=== PATIENT | female | born 1995 | race Two or more races ===

== ENCOUNTER 2020-01-30 04:28 | Emergency (ER) | payer MEDICAID ==
[~2020-01-30] VITALS: Ht 152.4 cm; Wt 49.9 kg
--- NOTE | 2020-01-30 04:45 | NUR ---
BIBSELF C/O LOWER ABDOMINAL PAIN, DESCRIBED CRAMPING. PT STATES SHE IS 3 WEEKS , P:2. DENIES VAGINAL BLEEDING, DYSURIA, NAUSEA, VOMITTING. PT AAOX4. RESPIRATIONS EVEN AND UNLABORED. SKIN INTACT. AMBULATORY WITH STEADY GAIT. NO ACUTE DISTRESS NOTED AT THIS TIME. WILL CONTINUE TO MONITOR.
--- NOTE | 2020-01-30 04:50 | NUR ---
[employer] AT BEDSIDE FOR BLOOD DRAW
[2020-01-30 04:53] LABS: BASOPHILS % (AUTO) 0.4 % (0.0-2.0); EOSINOPHILS % (AUTO) 2.8 % (0.0-6.0); HEMATOCRIT 42 % (33-45); HEMOGLOBIN 13.9 g/dL (11.5-14.8); LYMPHOCYTES # (AUTO) 1.4 /CMM (0.8-4.8); LYMPHOCYTES % (AUTO) 22.1 % (20.0-44.0); MEAN CORPUSCULAR HGB CONC 33 g/dl (31.0-36.0); MEAN CORPUSCULAR VOLUME 94 fL (82-100); MONOCYTES # (AUTO) 0.6 /CMM (0.1-1.30); MONOCYTES % (AUTO) 8.9 % (2.0-12.0); NEUTROPHILS # (AUTO) 4.2 /CMM (1.8-8.9); NEUTROPHILS % (AUTO) 65.8 % (43.0-81.0); PLATELET COUNT (AUTO) 211 /CMM (150-450); RED BLOOD CELL COUNT(AUTO) 4.48 MIL/uL (4.0-5.2); WHITE BLOOD COUNT (AUTO) 6.4 K/uL (4.3-11.0)
[2020-01-30 05:05] LABS: CALCIUM, SERUM 8.6 mg/dL (8.5-10.1); CREATININE 0.8 mg/dL (0.6-1.3); POTASSIUM 3.9 mmol/L (3.5-5.1)
--- NOTE | 2020-01-30 05:13 | NUR ---
URINE COLLECTED AND SENT TO LAB
[2020-01-30 05:14] LABS: ALBUMIN 4.2 g/dL (3.4-5.0); BILIRUBIN,DIRECT 0.1 mg/dL (0.0-0.2); BILIRUBIN,TOTAL 0.2 mg/dL (0.2-1.0); TOTAL PROTEIN, SERUM 7.3 g/dL (6.4-8.2)
[2020-01-30 05:20] LABS: APPEARANCE,URINE Slightly Cloudy (CLEAR); BILIRUBIN,URINE Negative (NEGATIVE); BLOOD, URINE Negative Ery/uL (NEGATIVE); COLOR,URINE Yellow (YELLOW); KETONES,URINE Negative (NEGATIVE); LEUKOCYTE ESTERASE ,URINE Negative (NEGATIVE); NITRITE, URINE Negative (NEGATIVE); PH,URINE 6.5 (5.0-8.0); PROTEIN,URINE Negative (NEGATIVE); UGLUCOSE Negative (NEGATIVE); UROBILINOGEN,URINE 0.2 EU/dL (0.2)
--- NOTE | 2020-01-30 06:03 | NUR ---
ULTRASOUND AT BEDSIDE
[2020-01-30 06:33] VITALS: BP 117/84
--- NOTE | 2020-01-30 06:33 | NUR ---
Patient discharged to home in stable condition. Written and verbal after care instructions given. Patient verbalizes understanding of instruction.Pt ambulatory with a steady gait
== END 2020-01-30 06:40 | disposition home or self-care (01) ==
LOC: ER 04:28
DX: O26.891 Other specified pregnancy related conditions, first trimester (principal); R25.2 Cramp and spasm; Z3A.01 Less than 8 weeks gestation of pregnancy; Z98.890 Other specified postprocedural states
CPT/HCPCS: 36415; 76856-TC; 80048-TC; 80076-TC; 81000-TC; 83690-TC; 84702-TC; 84703-TC; 85025-TC

== ENCOUNTER 2022-04-27 09:26 | Emergency (ER) | payer MEDICAID ==
[~2022-04-27] VITALS: Ht 149.9 cm; Wt 56.7 kg
--- NOTE | 2022-04-27 10:20 | NUR ---
THE PATIENT BIBS FOR C/O NAUSEA AND VOMITING SINCE YESTERDAY. ABDOMEN SOFT AND NON-DISTENDED. WILL CONTINUE TO MONITOR THE PATIENT.
--- NOTE | 2022-04-27 11:17 | NUR ---
URINE COLLECTED AND SENT TO THE LAB
[2022-04-27 11:23] LABS: BILIRUBIN,URINE SMALL (NEGATIVE); COLOR,URINE YELLOW (YELLOW); LEUKOCYTE ESTERASE ,URINE NEGATIVE (NEGATIVE); NITRITE, URINE NEGATIVE (NEGATIVE); PROTEIN,URINE TRACE mg/dl (NEGATIVE); UGLUCOSE NEGATIVE (NEGATIVE); UROBILINOGEN,URINE 0.2 EU/dL (0.2)
[2022-04-27 11:25] LABS: BACTERIA,URINE Rare /HPF (None Seen); SQUAMOUS EPITHELIAL CELL,UR Few /HPF (None Seen); WBC,URINE 0-2 /HPF (0-3)
[2022-04-27 11:26] LABS: MUCUS,URINE Moderate /LPF (None Seen)
[2022-04-27] MEDS ORDERED: FAMOTIDINE/PF INJ 20 MG/2 ML VIAL IV ONE ×2 (11:30→11:32)
[2022-04-27] MEDS ORDERED: ONDANSETRON HCL/PF 4 MG/2 ML VIAL IVP ONE (11:30)
[2022-04-27] MEDS ORDERED: MAG HYDROX/AL HYDROX/SIMETH 30 ML UDC PO ONE (11:30)
--- NOTE | 2022-04-27 11:30 | NUR ---
IV LINE IS ESTABLISHED, BLOOD SPECIMEN COLLECTED AND SENT TO THE LAB. THE LINE IS SALINE LOCKED
[2022-04-27] MEDS ORDERED: ONDANSETRON HCL/PF 4 MG/2 ML VIAL ONE (11:32)
[2022-04-27] MEDS ORDERED: MAG HYDROX/AL HYDROX/SIMETH 30 ML UDC ONE (11:32)
--- NOTE | 2022-04-27 11:41 | NUR ---
US TECH AT THE BEDSIDE
[2022-04-27 11:52] LABS: BASOPHILS % (AUTO) 0.5 % (0.0-2.0); HEMATOCRIT 47 % (33-45); HEMOGLOBIN 15.3 g/dL (11.5-14.8); LYMPHOCYTES # (AUTO) 0.3 K/uL (0.8-4.8); LYMPHOCYTES % (AUTO) 4.6 % (20.0-44.0); MEAN CORPUSCULAR HGB CONC 33 g/dl (31.0-36.0); MEAN CORPUSCULAR VOLUME 91 fL (82-100); MONOCYTES # (AUTO) 0.3 K/uL (0.1-1.30); MONOCYTES % (AUTO) 4.1 % (2.0-12.0); NEUTROPHILS # (AUTO) 6.3 K/uL (1.8-8.9); NEUTROPHILS % (AUTO) 90.8 % (43.0-81.0); PLATELET COUNT (AUTO) 253 K/uL (150-450); RED BLOOD CELL COUNT(AUTO) 5.14 MIL/uL (4.0-5.2); WHITE BLOOD COUNT (AUTO) 6.9 K/uL (4.3-11.0)
[2022-04-27 12:14] LABS: ALBUMIN 4.4 g/dL (3.4-5.0); BILIRUBIN,DIRECT 0.1 mg/dL (0.0-0.2); BILIRUBIN,TOTAL 0.5 mg/dL (0.2-1.0); CREATININE 0.7 mg/dL (0.6-1.3); POTASSIUM 3.9 mmol/L (3.5-5.1); TOTAL PROTEIN, SERUM 7.7 g/dL (6.4-8.2)
[2022-04-27] MEDS ORDERED: FAMO20TA8 PO (12:57)
[2022-04-27] MEDS ORDERED: ONDA4TAB5 PO (12:57)
[2022-04-27 13:15] VITALS: BP 116/68
--- NOTE | 2022-04-27 13:15 | NUR ---
IV removed. Catheter intact and site benign. Pressure and 4x4 applied to site. No bleeding noted.Patient discharged to home in stable condition. Written and verbal after care instructions given. Patient verbalizes understanding of instruction.
== END 2022-04-27 13:16 | disposition home or self-care (01) ==
LOC: ER 09:33
DX: R10.9 Unspecified abdominal pain (principal); Z79.899 Other long term (current) drug therapy
CPT/HCPCS: 99284; 96374; 76856; 96375; 85025; 80048; 83690; 80076; 84703; 81001; 36415; J3490; J2405

== ENCOUNTER 2022-11-18 03:07 | Emergency (ER) | payer MEDICAID ==
[~2022-11-18] VITALS: Ht 149.9 cm; Wt 53.1 kg
[~2022-11-18 03:07] MED LIST: FAMO20TA8 PO; ONDA4TAB5 PO
--- NOTE | 2022-11-18 04:00 | NUR ---
BIBS. VOMMITING AND DIARRHEA X YESTERDAY. AXO4 AMBULATORY. DENIES ANY PAIN
[2022-11-18] MEDS ORDERED: ONDANSETRON 4 MG TAB.RAPDIS ONE (04:07)
[2022-11-18] MEDS ORDERED: ONDANSETRON 4 MG TAB.RAPDIS SL ONE (04:30)
--- NOTE | 2022-11-18 04:50 | NUR ---
PO CHALLANGE TOLERATED BY PT
[2022-11-18] MEDS ORDERED: ONDA4TAB11 PO (05:17)
--- NOTE | 2022-11-18 05:25 | NUR ---
Patient discharged to home in stable condition. Written and verbal after care instructions given. Patient verbalizes understanding of instruction.
[2022-11-18 05:28] VITALS: BP 109/67
== END 2022-11-18 05:28 | disposition home or self-care (01) ==
LOC: ER 03:08
DX: B34.9 Viral infection, unspecified (principal); Z98.890 Other specified postprocedural states; Z79.899 Other long term (current) drug therapy
CPT/HCPCS: 99283; Q0162

== ENCOUNTER 2023-09-04 22:48 | Inpatient (IN) | payer MEDICAID ==
[~2023-09-04] VITALS: Ht 149.9 cm; Wt 51.3 kg
[~2023-09-04 22:48] MED LIST changes: +ONDA4TAB11 PO
[2023-09-04] MEDS ORDERED: IV NS 0.9% 1,000 ML BAG IV ONE (23:30)
[2023-09-04 23:48] LABS: BASOPHILS # (AUTO) 0.2 K/uL (0.0-0.2); BASOPHILS % (AUTO) 1.9 % (0.0-2.0); EOSINOPHILS # (AUTO) 0.7 K/uL (0.0-0.7); EOSINOPHILS % (AUTO) 7.9 % (0.0-6.0); HEMATOCRIT 38 % (33-45); HEMOGLOBIN 12.6 g/dL (11.5-14.8); LYMPHOCYTES # (AUTO) 0.5 K/uL (0.8-4.8); LYMPHOCYTES % (AUTO) 5.8 % (20.0-44.0); MEAN CORPUSCULAR HEMOGLOBIN 29 PG (26.0-33.0); MEAN CORPUSCULAR HGB CONC 33 g/dl (31.0-36.0); MEAN CORPUSCULAR VOLUME 89 fL (82-100); MONOCYTES # (AUTO) 0.6 K/uL (0.1-1.30); MONOCYTES % (AUTO) 7.5 % (2.0-12.0); NEUTROPHILS # (AUTO) 6.6 K/uL (1.8-8.9); NEUTROPHILS % (AUTO) 76.9 % (43.0-81.0); PLATELET COUNT (AUTO) 223 K/uL (150-450); RED BLOOD CELL COUNT(AUTO) 4.32 MIL/uL (4.0-5.2); RED CELL DISTRIBUTION WIDTH 13.4 % (11.5-15.0); WHITE BLOOD COUNT (AUTO) 8.5 K/uL (4.3-11.0)
[2023-09-05 00:05] LABS: CALCIUM, SERUM 8.7 mg/dL (8.5-10.1); CARBON DIOXIDE 24 mmol/L (21-32); CHLORIDE 102 mmol/L (98-107); CREATININE 0.7 mg/dL (0.6-1.3); GLUCOSE 90 mg/dL (74-106); POTASSIUM 3.5 mmol/L (3.5-5.1); SODIUM SERUM 135 mmol/L (136-145); UREA NITROGEN, BLOOD 7 mg/dL (7-18)
[2023-09-05] MEDS ORDERED: IPRATROPIUM NEB FS 0.5 MG/2.5 ML AMPUL.NEB NEB STA (01:16)
[2023-09-05] MEDS ORDERED: IPRATROPIUM NEB FS 0.5 MG/2.5 ML AMPUL.NEB ONE (01:34)
[2023-09-05 01:41] VITALS: O2SAT 97
[2023-09-05 01:42] LABS: PREGNANCY TEST URINE QUAL NEGATIVE (NEGATIVE)
[2023-09-05 01:56] VITALS: O2SAT 99
[2023-09-05] MEDS ORDERED: predniSONE 50 MG TABLET PO ONE (02:00)
[2023-09-05 02:04] LABS: AMPHETAMINE, URINE NEGATIVE (NEGATIVE); BARBITURATE, URINE NEGATIVE (NEGATIVE); BENZODIAZEPINE, URINE NEGATIVE (NEGATIVE); CANNABINOID, URINE NEGATIVE (NEGATIVE); COCCAINE, URINE NEGATIVE (NEGATIVE); OPIATE, URINE NEGATIVE (NEGATIVE); PHENCYCLIDINE SCREEN,URINE NEGATIVE (NEGATIVE)
[2023-09-05] MEDS ORDERED: predniSONE 20 MG TABLET ONE (02:04)
[2023-09-05] MEDS ORDERED: LORAZEPAM 1 MG TABLET PO ONE (03:30)
[2023-09-05] MEDS ORDERED: IV NS 0.9% 1,000 ML BAG IV ONE (03:30)
[2023-09-05] MEDS ORDERED: LORAZEPAM 1 MG TABLET ONE (03:47)
[2023-09-05] MEDS ORDERED: TEMAZEPAM 15 MG CAPSULE PO PRN (05:30)
[2023-09-05] MEDS ORDERED: IV NS 0.9% 1,000 ML IV PRN (05:30)
[2023-09-05] MEDS ORDERED: LORAZEPAM 1 MG TABLET PO PRN (05:30)
[2023-09-05] MEDS ORDERED: Z GUARD REMEDY 4 OZ OINT TP PRN (05:30)
[2023-09-05] MEDS ORDERED: ACETAMINOPHEN 325 MG TABLET PO PRN (05:30)
[2023-09-05] MEDS ORDERED: MAG HYDROX/AL HYDROX/SIMETH 30 ML UDC PO PRN (05:30)
[2023-09-05] MEDS ORDERED: MAGNESIUM HYDROXIDE 30 ML UDC PO PRN (05:30)
[2023-09-05] MEDS ORDERED: HYDROCODONE/APAP 5/325MG TABLET PO PRN (05:30)
[2023-09-05] MEDS ORDERED: LEVALBUTEROL HCL NEB 1.25 MG/0.5 ML VIAL.NEB NEB PRN (05:30)
[2023-09-05] MEDS ORDERED: ONDANSETRON HCL/PF 4 MG/2 ML VIAL IVP PRN (05:30)
[2023-09-05] MEDS ORDERED: PANTOPRAZOLE 40 MG TABLET.DR PO SCH (07:30)
[2023-09-05] MEDS ORDERED: ALBUTEROL FS 2.5 MG/0.5 ML VIAL.NEB NEB PRN (08:00)
[2023-09-05 08:16] VITALS: BP 102/75; O2SAT 96
[2023-09-05] MEDS ORDERED: ALBU18HF2 IH ×2 (11:23→11:52)
[2023-09-05] MEDS ORDERED: METH4TAB3 PO (11:52)
== END 2023-09-05 15:00 | disposition home or self-care (01) | DRG 723 ==
LOC: ER 22:50 → TRANSITION 09-05 05:32 → TELE1 09-05 08:23 → TELE 09-05 09:24
PROVIDERS: ADMIT Internal Medicine; ATTEND Internal Medicine
DX: B34.9 Viral infection, unspecified (principal); E86.0 Dehydration; R94.6 Abnormal results of thyroid function studies; Z98.891 History of uterine scar from previous surgery; Z79.899 Other long term (current) drug therapy; J45.909 Unspecified asthma, uncomplicated
CPT/HCPCS: 36415; 71045-TC; 80048-TC; 84439-TC; 84443-TC; 84481; 84484-TC; 84703-TC; 85025-TC; 85378-TC; 93307-TC; A4223; G0378; J2405; J7030

== ENCOUNTER 2023-11-06 06:18 | Emergency (ER) | payer MEDICAID ==
[~2023-11-06] VITALS: Ht 149.9 cm; Wt 51.3 kg
[~2023-11-06 06:18] MED LIST changes: +ALBU18HF2 IH; -FAMO20TA8 PO; +METH4TAB3 PO; -ONDA4TAB11 PO; -ONDA4TAB5 PO
[2023-11-06] MEDS ORDERED: IPRATROPIUM NEB FS 0.5 MG/2.5 ML AMPUL.NEB ONE ×2 (07:04→10:48)
[2023-11-06] MEDS ORDERED: ALBUTEROL FS 2.5 MG/3 ML VIAL.NEB ONE ×2 (07:04→10:48)
[2023-11-06 07:11] VITALS: O2SAT 97
[2023-11-06] MEDS: ALBUTEROL FS 2.5 MG/3 ML VIAL.NEB CONTNEB ONE (07:11)
[2023-11-06] MEDS: IPRATROPIUM NEB FS 0.5 MG/2.5 ML AMPUL.NEB NEB ONE ×2 (07:11→10:53)
[2023-11-06 07:31] VITALS: O2SAT 100
[2023-11-06 07:36] LABS: BASOPHILS # (AUTO) 0.1 K/uL (0.0-0.2); BASOPHILS % (AUTO) 0.4 % (0.0-2.0); EOSINOPHILS # (AUTO) 1.7 K/uL (0.0-0.7); EOSINOPHILS % (AUTO) 11.1 % (0.0-6.0); HEMATOCRIT 37 % (33-45); HEMOGLOBIN 12.3 g/dL (11.5-14.8); LYMPHOCYTES # (AUTO) 1.3 K/uL (0.8-4.8); LYMPHOCYTES % (AUTO) 8.3 % (20.0-44.0); MEAN CORPUSCULAR HEMOGLOBIN 29 PG (26.0-33.0); MEAN CORPUSCULAR HGB CONC 34 g/dl (31.0-36.0); MEAN CORPUSCULAR VOLUME 87 fL (82-100); MONOCYTES # (AUTO) 0.8 K/uL (0.1-1.30); MONOCYTES % (AUTO) 5.5 % (2.0-12.0); NEUTROPHILS # (AUTO) 11.5 K/uL (1.8-8.9); NEUTROPHILS % (AUTO) 74.7 % (43.0-81.0); PLATELET COUNT (AUTO) 270 K/uL (150-450); RED BLOOD CELL COUNT(AUTO) 4.18 MIL/uL (4.0-5.2); RED CELL DISTRIBUTION WIDTH 14.2 % (11.5-15.0); WHITE BLOOD COUNT (AUTO) 15.5 K/uL (4.3-11.0)
[2023-11-06 07:51] LABS: CALCIUM, SERUM 8.8 mg/dL (8.5-10.1); CREATININE 0.5 mg/dL (0.6-1.3); POTASSIUM 4.4 mmol/L (3.5-5.1)
[2023-11-06 08:24] LABS: PREGNANCY TEST URINE QUAL POSITIVE (NEGATIVE)
[2023-11-06 10:53] VITALS: O2SAT 99
[2023-11-06] MEDS: ALBUTEROL FS 2.5 MG/3 ML VIAL.NEB NEB ONE (10:53)
[2023-11-06 11:03] VITALS: O2SAT 100
[2023-11-06] MEDS ORDERED: PRED50TA PO (11:12)
[2023-11-06] MEDS ORDERED: ALBU18HF2 INH (11:12)
[2023-11-06] MEDS ORDERED: PREN1TAB81 PO (11:13)
[2023-11-06 11:24] VITALS: BP 122/75; TEMP 98.4; O2SAT 100
== END 2023-11-06 11:25 | disposition home or self-care (01) ==
LOC: ER 06:22
DX: O26.899 Other specified pregnancy related conditions, unspecified trimester (principal); J45.901 Unspecified asthma with (acute) exacerbation; Z3A.00 Weeks of gestation of pregnancy not specified
CPT/HCPCS: 36415; 71045-TC; 76805-TC; 80048-TC; 84703-TC; 85025-TC; 94799-TC

== ENCOUNTER 2023-11-06 18:29 | Emergency (ER) | payer MEDICAID ==
[~2023-11-06] VITALS: Ht 167.6 cm; Wt 49.0 kg
[~2023-11-06 18:29] MED LIST changes: +ALBU18HF2 INH; +PRED50TA PO; +PREN1TAB81 PO
[2023-11-06 18:58] VITALS: TEMP 98.2
[2023-11-06] MEDS ORDERED: predniSONE 20 MG TABLET ONE ×2 (19:34→19:35)
[2023-11-06] MEDS: predniSONE 20 MG TABLET PO ONE (19:42)
[2023-11-06] MEDS: IV NS 0.9% 1,000 ML BAG IV ONE (20:36)
[2023-11-06 22:08] VITALS: BP 129/77; O2SAT 100
== END 2023-11-06 22:09 | disposition home or self-care (01) ==
LOC: ER 18:33
DX: R06.02 Shortness of breath (principal); R00.0 Tachycardia, unspecified
CPT/HCPCS: 99284; 96360; 93005; 36415; 84484; J7512; J7030

== ENCOUNTER 2023-12-11 18:44 | Emergency (ER) | payer MEDICAID ==
[~2023-12-11] VITALS: Ht 149.9 cm; Wt 50.8 kg
[2023-12-11] MEDS ORDERED: ALBUTEROL FS 2.5 MG/3 ML VIAL.NEB ONE (20:59)
[2023-12-11] MEDS ORDERED: IPRATROPIUM NEB FS 0.5 MG/2.5 ML AMPUL.NEB ONE (20:59)
[2023-12-11] MEDS ORDERED: predniSONE 20 MG TABLET ONE (21:03)
[2023-12-11] MEDS: predniSONE 50 MG TABLET PO ONE (21:09)
[2023-12-11 21:10] VITALS: O2SAT 96
[2023-12-11 21:30] VITALS: O2SAT 99
[2023-12-11 21:34] VITALS: O2SAT 99
[2023-12-11] MEDS: IPRATROPIUM NEB FS 0.5 MG/2.5 ML AMPUL.NEB NEB ONE (21:51)
[2023-12-11] MEDS: ALBUTEROL FS 2.5 MG/3 ML VIAL.NEB NEB ONE (21:51)
[2023-12-11 21:54] VITALS: O2SAT 99
[2023-12-11 22:32] VITALS: BP 110/66; TEMP 98.3; O2SAT 99
[2023-12-11] MEDS ORDERED: PRED50TA PO (22:32)
== END 2023-12-11 22:51 | disposition home or self-care (01) ==
LOC: ER 18:46
DX: O99.511 Diseases of the respiratory system complicating pregnancy, first trimester (principal); J45.901 Unspecified asthma with (acute) exacerbation; Z3A.09 9 weeks gestation of pregnancy
CPT/HCPCS: 99285; 94640 ×2; J7512

== ENCOUNTER 2024-01-26 17:06 | Emergency (ER) | payer MEDICAID ==
[~2024-01-26] VITALS: Ht 149.9 cm; Wt 53.1 kg
[2024-01-26 19:01] VITALS: BP 121/69; TEMP 98.1; O2SAT 98
== END 2024-01-26 18:45 | disposition home or self-care (01) ==
LOC: ER 17:12
DX: O26.892 Other specified pregnancy related conditions, second trimester (principal); S39.81XA Other specified injuries of abdomen, initial encounter; Z3A.16 16 weeks gestation of pregnancy; X58.XXXA Exposure to other specified factors, initial encounter; Y93.89 Activity, other specified; Y92.89 Other specified places as the place of occurrence of the external cause; Y99.8 Other external cause status
CPT/HCPCS: 76805-TC

== ENCOUNTER 2024-10-17 08:10 | Emergency (ER) | payer MEDICAID ==
[~2024-10-17] VITALS: Ht 149.9 cm; Wt 54.4 kg
[2024-10-17] MEDS ORDERED: ALBUTEROL FS 2.5 MG/3 ML VIAL.NEB ONE (10:15)
[2024-10-17] MEDS ORDERED: IPRATROPIUM NEB FS 0.5 MG/2.5 ML AMPUL.NEB ONE (10:15)
[2024-10-17] MEDS ORDERED: predniSONE 20 MG TABLET ONE (10:17)
[2024-10-17] MEDS: predniSONE 20 MG TABLET PO ONE (10:17)
[2024-10-17] MEDS: IPRATROPIUM NEB FS 0.5 MG/2.5 ML AMPUL.NEB NEB ONE (10:21)
[2024-10-17] MEDS: ALBUTEROL FS 2.5 MG/3 ML VIAL.NEB NEB ONE (10:21)
[2024-10-17 10:22] VITALS: O2SAT 98
[2024-10-17] MEDS ORDERED: PRED50TA PO (10:36)
[2024-10-17] MEDS ORDERED: ALBU18HF2 INH (10:36)
[2024-10-17 10:37] VITALS: O2SAT 100
[2024-10-17 10:38] VITALS: O2SAT 100
[2024-10-17 10:53] VITALS: O2SAT 100
[2024-10-17 11:09] VITALS: BP 131/69; TEMP 98.1; O2SAT 100
== END 2024-10-17 10:46 | disposition home or self-care (01) ==
LOC: ER 08:19
DX: J45.901 Unspecified asthma with (acute) exacerbation (principal); R06.02 Shortness of breath; Z79.52 Long term (current) use of systemic steroids
CPT/HCPCS: 99285; 94640 ×2; J7512